=== PATIENT | male | born 1970 | race Caucasian/White ===

== ENCOUNTER 2016-12-13 23:57 | Emergency (ER) | payer BC ==
[~2016-12-13] VITALS: Ht 195.6 cm; Wt 105.8 kg
[~2016-12-13 23:57] MED LIST: AUGMENTIN875 MG OR; CLARITIN10 M2 OR; FLEXERIL OR; FLEXERIL10 MG OR; LORTAB 5 OR; LORTAB 7.5 OR; LORTAB5 OR; MOTRIN800 MG OR; NAPROSYN500 MG PO; NO HOME MEDS; PENICILLN VK500 MG OR; SUBUTEX8 MG SL; ULTRAM50 M1 PO
[2016-12-14 00:57] LABS: HEMATOCRIT 45.3 % (39.0-50.0); HEMOGLOBIN 15.1 g/dl (14.0-18.0); IMMATURE GRANULOCYTES 0.4 % (0.0-1.0); MEAN CELL VOLUME 89.7 fL CALC (80.0-100.0); MEAN CORPUSCULAR HGB 29.9 pG CALC (26.0-32.0); MEAN CORPUSCULAR HGB CONC 33.3 g/L CALC (32.0-36.0); NEUT# 7.12 thou/uL (1.82-7.42); RED BLOOD COUNT 5.05 mill/uL (4.70-6.10)
[2016-12-14 01:13] LABS: ALBUMIN 4.7 g/dL (3.2-5.0); ALKALINE PHOSPHATASE 86 u/l (38-126); ANION GAP 17 (6-22 (CALC)); BILIRUBIN, TOTAL 0.4 mg/dL (0.0-1.4); BUN 13 mg/dL (9-20); BUN/CREATININE RATIO 16 (12-20 (CALC)); CALCIUM 9.6 mg/dL (8.4-10.2); CARBON DIOXIDE 27 mmol/l (22-30); CHLORIDE 104 mmol/l (95-108); CREATININE 0.8 mg/dL (0.7-1.3); GFR > 60 ML/MIN (>=60 (CALC)); GFR FOR AFR.AMER. > 60 ML/MIN (>=60 (CALC)); GLUCOSE 132 mg/dL (75-110); POTASSIUM 4.7 mmol/l (3.5-5.1); SGOT/AST 26 u/l (17-59); SGPT/ALT 45 u/l (21-72); SODIUM 143 mmol/l (137-146); TOTAL PROTEIN 7.7 g/dL (6.3-8.2)
[2016-12-14 01:26] LABS: MYOGLOBIN 39 ng/mL (0 - 121)
[2016-12-14] MEDS ORDERED: IBUPROFEN600 MG PO (02:23)
[2016-12-14 02:38] VITALS: BP 115/71
== END 2016-12-14 02:40 | disposition home or self-care (01) | DRG 313 ==
LOC: ED 23:57
PROVIDERS: Emergency Medicine
DX: R07.89 Other chest pain (principal); F17.210 Nicotine dependence, cigarettes, uncomplicated

== ENCOUNTER 2017-04-10 08:08 | Emergency (ER) | payer OTHER, BC ==
[~2017-04-10] VITALS: Ht 195.6 cm; Wt 90.0 kg
[~2017-04-10 08:08] MED LIST changes: +IBUPROFEN600 MG PO
[2017-04-10] MEDS ORDERED: BUPRENORPHIN8 MG SL (10:17)
[2017-04-10] MEDS ORDERED: TORADOL PO (10:25)
[2017-04-10 10:35] VITALS: BP 131/74
== END 2017-04-10 10:35 | disposition home or self-care (01) | DRG 605 ==
LOC: ED 08:08
PROC: 2W3DX1Z Immobilization of Left Lower Arm using Splint (ICD-10-PCS; principal; 2017-04-10)
DX: S60.811A Abrasion of right wrist, initial encounter (principal); S63.502A Unspecified sprain of left wrist, initial encounter; S80.212A Abrasion, left knee, initial encounter; V28.4XXA Motorcycle driver injured in noncollision transport accident in traffic accident, initial encounter; Y92.414 Local residential or business street as the place of occurrence of the external cause; Y93.I9 Activity, other involving external motion

== ENCOUNTER 2022-10-25 13:54 | Emergency (ER) | payer BC ==
[~2022-10-25] VITALS: Ht 195.6 cm; Wt 98.1 kg
[2022-10-25] VITALS (11 sets, daily range): BP systolic 102–122; BP diastolic 59–73
[~2022-10-25 13:54] MED LIST changes: +BUPRENORPHIN8 MG SL; +TORADOL PO
[2022-10-25 14:41] LABS: BASO% 0.7 % (0-3); EOS% 0.9 % (0-8); HEMATOCRIT 48.1 % (39.0-50.0); HEMOGLOBIN 15.9 g/dl (14.0-18.0); IMMATURE GRANULOCYTES 0.3 % (0.0-5.0); LYMPH% 14.9 % (15-41); MEAN CORPUSCULAR HGB 30.4 pG CALC (26.0-32.0); MEAN CORPUSCULAR HGB CONC 33.1 g/dL CAL (32.0-36.0); MONO% 6.1 % (2-13); NEUT# 9.69 thou/uL (1.82-7.42); NEUT% 77.1 % (42-76); RED BLOOD COUNT 5.23 mill/uL (4.70-6.10); RED CELL DISTRI WIDTH 11.9 % (11.5-15.5)
[2022-10-25 14:52] LABS: ALBUMIN 4.6 g/dL (3.2-5.0); ALKALINE PHOSPHATASE 63 u/l (38-126); ANION GAP 13 (6-22 (CALC)); BILIRUBIN, TOTAL 0.6 mg/dL (0.2-1.3); BUN 20 mg/dL (9-20); BUN/CREATININE RATIO 20 (12-20 (CALC)); CARBON DIOXIDE 27 mmol/l (22-30); CHLORIDE 107 mmol/l (95-108); CPK < 20 u/l (55-170); GFR FOR AFR.AMER. > 60 ML/MIN (>=60 (CALC)); GFR OTHER RACES > 60 ML/MIN (>=60 (CALC)); POTASSIUM 4.9 mmol/l (3.5-5.1); SGOT/AST 25 u/l (17-59); SODIUM 142 mmol/l (137-146); TOTAL PROTEIN 7.3 g/dL (6.3-8.2)
== END 2022-10-25 16:22 | disposition home or self-care (01) | DRG 641 ==
LOC: ED 13:54
PROVIDERS: Family Medicine
DX: E86.0 Dehydration (principal); Q87.40 Marfan syndrome, unspecified; F17.200 Nicotine dependence, unspecified, uncomplicated